=== PATIENT | female | born 1995 | race Caucasian/White ===

== ENCOUNTER 2017-01-17 13:01 | Emergency (ER) | payer OTHER ==
[~2017-01-17] VITALS: Ht 165.1 cm; Wt 73.9 kg
[2017-01-17 13:06] VITALS: TEMP 36.8; Ht 165.1 cm; Wt 73.9 kg
--- NOTE | 2017-01-17 13:51 | EMERGENCY ROOM VISIT NOTE ---
ED Visit Note First contact with patient: 13:30 CHIEF COMPLAINT: Sore throat HISTORY OF PRESENT ILLNESS: This 21-year-old [employer] student presents the ER with chief complaint of sore throat which started last night. The patient states that she is able to swallow liquids and solids but it is painful. She states the pain on the right side radiates up to her right ear. The patient denies any head congestion or cough or chest tightness. She denies any fever. The patient admits that she normally has large tonsils and over the past several years has gotten strep around this time a year. She denies any known exposures to strep pharyngitis. REVIEW OF SYSTEMS: 6 system review was performed and was negative unless stated otherwise in history of present illness. PMH: The patient is healthy; wisdom tooth removal SOCIAL HISTORY: Patient is a [employer] student. The patient denies any tobacco use but admits to occasional alcohol use. PHYSICAL EXAM: Vital Signs were reviewed: Reviewed Nurse's notes and agree. Oxygen saturation is 98 % on room air which is normal . GENERAL: 21-year-old female appears in no acute distress. MENTAL STATUS: Alert, oriented, coherent. EARS: Canals clear. TMs good light reflex, no erythema or fluid level noted. NOSE: Nasal mucosa with moderate erythema engorgement. PHARYNX: Moderate erythema, tonsils 2+ bilaterally.. Small amount of exudate noted bilaterally. Airway is adequate. NECK: Supple, bilateral anterior cervical lymphadenopathy is noted which is tender to palpation.. LUNGS: Clear to auscultation without wheezes rales or rhonchi. CARDIAC: Regular rate and rhythm without murmur. SKIN : No rashes noted. EMERGENCY COURSE: The patient was evaluated. Rapid strep was negative, culture is pending. Since the patient has had strep throat the last several years of this time of year and it is finals week I will prophylactically treat the patient with amoxicillin. The patient was happy with treatment plan was discharged home in stable condition. DIAGNOSIS: Sore throat DISCHARGE INSTRUCTIONS & TREATMENT: Read sore throat handout instructions. Take amoxicillin as prescribed. Tylenol and/or ibuprofen as needed for fever and pain. If symptoms persist or worsen, follow-up with [facility]. Current/Historical Medications No Active Prescriptions or Reported Meds Allergies Coded Allergies: No Known Allergies (Unverified , 01/17/17) Vital Signs Date Time Temp Pulse Resp B/P (MAP) Pulse Ox O2 Delivery O2 Flow Rate FiO2 01/17/17 13:06 98 Room Air 01/17/17 13:06 36.8 89 18 110/68 98 Room Air Departure Information Prescriptions No Active Prescriptions or Reported Meds Referrals No Doctor, Assigned (PCP) Patient Instructions [facility]
[2017-01-17] MEDS ORDERED: AMOX500C3 PO (13:53)
[2017-01-17 14:16] VITALS: BP 112/72; PULSE 78; O2SAT 99
== END 2017-01-17 14:15 | disposition home or self-care (01) ==
LOC: C.EDB 13:05 → C.EDD 14:15
DX: J02.9 Acute pharyngitis, unspecified (principal); Z98.818 Other dental procedure status